=== PATIENT | male | born 1985 | race Caucasian/White ===

== ENCOUNTER 2020-08-28 09:50 | Outpatient (REF) | payer OTHER, SELFPAY ==
[2020-08-28 10:35] LABS: MANUAL DIFF FLAG NO
[2020-08-28 10:38] LABS: Basophils Absolute Auto 0.1 X10*3/uL (0.0-0.2); Eosinophils Absolute Auto 0.3 X10*3/uL (0.0-0.4); Eosinophils Percent Auto 3.5 % (0-4); Hematocrit 51.5 % (42-52); Hemoglobin 17.3 g/dl (14.0-18.0); Imm Gran Abs Auto 0.03 X10*3/uL (0.00-0.03); Imm Gran Pct Auto 0.4 % (0.0-0.4); Lymphocytes Absolute Auto 2.7 X10*3/uL (1.2-4.9); Lymphocytes Percent Auto 32.5 % (20-40); Mean Corpuscular HGB Conc 33.6 g/dl (31.0-36.0); Mean Corpuscular Volume 86.4 fL (80-98); Mean Platelet Volume 10.7 fL (9.4-12.4); Monocytes Absolute Auto 0.6 X10*3/uL (0.1-1.2); Monocytes Percent Auto 7.1 % (2-11); Neutrophils Absolute Auto 4.6 X10*3/uL (2.0-8.3); Neutrophils Percent Auto 55.5 % (45-73); Platelet Count 237 X10*3/uL (160-400); Red Blood Count 5.96 X10*6/uL (4.60-5.80); Red Cell Distribution Width 12.9 % (11.0-16.0); White Blood Count 8.3 X10*3/uL (4.8-10.8)
[2020-08-28 11:10] LABS: Alanine Aminotransferase 27 U/L (0-40); Albumin Level 4.3 g/dL (3.5-5.0); Alkaline Phosphatase 89 U/L (39-117); Anion Gap 12 (12-20); Aspartate Amino Transferase 17 U/L (5-37); Bilirubin Total 0.5 mg/dL (0.0-1.0); Blood Urea Nitrogen 15 mg/dL (9-16); Calcium 9.8 mg/dL (8.4-10.2); Carbon Dioxide 30 mmol/L (22-29); Chloride 99 mmol/L (96-108); Cholesterol 208 mg/dL; Estimated Glomerular Filt Rate > 60; Glucose Fasting 235 mg/dL (60-99); HDL Cholesterol 36 mg/dL; LDL Cholesterol Calculated 135 mg/dl; Sodium 136 mmol/L (135-145); Total Protein 7.7 g/dL (6.5-8.0); Triglycerides 187 mg/dL
[2020-08-28 11:12] LABS: Creatinine Urine 148.51 mg/dL; Microalbum/Creatinine Ratio Ur 4.7 ug/mg cr
[2020-08-28 11:17] LABS: Estimated Average Glucose 226 mg/dL; Hemoglobin A1c % 9.5 %
[2020-08-28 11:42] LABS: Vitamin B12 403 pg/mL (200-900)
[2020-09-01 20:37] LABS: Intrinsic Factor Antibodies Negative (Negative)
[2020-09-05 10:18] LABS: Parietal Cell Antibody 62.2 Unit (<=20.0)
== END 2020-08-28 09:51 | disposition home or self-care (01) ==
LOC: HO.LAB 09:50
PROVIDERS: PCP Internal Medicine; Visit Provider Internal Medicine
DX: E78.5 Hyperlipidemia, unspecified (principal); E78.2 Mixed hyperlipidemia; E11.65 Type 2 diabetes mellitus with hyperglycemia; E11.9 Type 2 diabetes mellitus without complications; E53.8 Deficiency of other specified B group vitamins
CPT/HCPCS: 36415; 80053; 80061; 82043; 82607; 82746; 83036; 83516; 85025; 86340

== ENCOUNTER 2020-12-05 20:29 | Emergency (ER) | payer OTHER, SELFPAY ==
[2020-12-05 22:21] VITALS: BP 133/83; PULSE 94; RESP 17; TEMP 36.5; O2SAT 96; BMI 38.5
--- NOTE | 2020-12-05 22:50 | ED_ITS ---
HPI - Skin/Abscess/Foreign Bdy General Chief complaint: Skin/Abscess/Foreign Body Stated complaint: abcess Time Seen by Provider: 12/05/20 23:53 Source: patient Mode of arrival: ambulatory Limitations: no limitations History of Present Illness HPI narrative: 35-year-old male presents with cellulitis and abscess to the left groin, and paronychia to the right middle finger. States is been there for several days and has been getting worse, he is having a difficult time ambulating at work because the pain and friction. He does not report any fevers or chills, states that these abscesses grow every once in a while and are usually in the same spot. MD complaint: abscess/boil Onset (ago): day(s) Tetanus up to date: no Location: R hand and LLE Severity: moderate Severity scale (1-10): 6 Quality: burning, aching and constant Pain Consistency: constant Relieving factors: none Exacerbating factors: palpation and movement Context: none Associated symptoms: denies other symptoms Treatments prior to arrival: attempted to drain pus at home Related Data Previous Rx's Medication Instructions Recorded blood sugar diagnostic #50 ea 10/19/20 blood-glucose meter #1 ea 10/19/20 lancets 28 gauge #100 ea 10/19/20 linagliptin 5 mg tablet 5 mg PO DAILY 90 Days #90 tab 10/19/20 pioglitazone 45 mg tablet 45 mg PO DAILY 90 Days #90 tab 10/19/20 rosuvastatin 10 mg tablet 10 mg PO BEDTIME 90 Days #90 tab 10/19/20 doxycycline monohydrate 100 mg PO BID 10 Days #20 tab 12/05/20 Allergies Allergy/AdvReac Type Severity Reaction Status Date / Time ibuprofen [IBUPROFEN] Allergy Severe FACIAL Verified 12/05/20 22:36 SWELLING TO THE EYES CLOSED , swells up metformin AdvReac Unknown diarrhea Verified 12/05/20 22:36 Review of Systems Review of Systems: Constitutional: No Fever, No Chills ENT/Mouth: No Ear Pain, No Hoarseness, No sore throat Eyes: No Eye Pain, No Swelling, No Redness, No Foreign Body Cardiovascular: No Chest Pain, No SOB Respiratory: No Cough, No Dyspnea Gastrointestinal: No Nausea, No Vomiting, No Diarrhea, No abdominal Pain Genitourinary: No Dysuria, No Hematuria Musculoskeletal: positive left groin and right finger pain, No Myalgias, No Joint Swelling Skin: Positive redness and swelling to the left groin, No Skin lacerations, No rash Neuro: No Weakness, No Numbness, No Paresthesias, No Loss of Consciousness, No Dizziness, No Headache Psych: No Anxiety/Panic, No Depression Heme/Lymph: no easy bruising, no Lymphadenopathy Endocrine: No Polyuria, No Polydipsia Yes all other systems are reviewed and are negative [facility] Past Medical History Attestation statement: The following information was validated with the patient. Source: old records reviewed Medical History (Updated 12/05/20 @ 23:56 by Eleni Camargo NP) B12 deficiency Diabetes mellitus Elevated hemoglobin Left elbow pain Lumbar degenerative disc disease Mixed hyperlipidemia MARILIA (obstructive sleep apnea) Surgical History History of removal of cyst Male circumcision Family History Family History Father No problems noted. Mother Hypertension Son No problems noted. Brother No problems noted. Brother No problems noted. Social History Social History Smoking Status: Current every day smoker Tobacco Type: Cigarette Cigarettes Per Day: 9 Advance Directives: No Advance Directives Information Provided: Yes Physical Exam Vital Signs: Vital Signs: Last Vital Signs Temp 97.7 F 12/05/20 22:21 Pulse 94 12/05/20 22:21 Resp 17 12/05/20 22:21 BP 133/83 12/05/20 22:21 Pulse Ox 96 12/05/20 22:21 Body Mass Index 38.5 Appearance: Alert. Oriented X3. No acute distress. Eyes: Pupils equal, round and reactive to light. ENT: Pharynx normal. Neck: Normal inspection. Neck supple. CVS: Normal heart rate and rhythm. Pulses normal. Respiratory: No respiratory distress. Breath sounds normal. Abdomen: Soft and nontender. Skin: Approximately 5 cm area of erythema and cellulitis with pustule to the left groin, paronychia to the right 3rd finger, Skin warm and dry. Normal skin color. Normal skin turgor. Extremities: No lower extremity edema. Full range of motion to all extremities, pulses and capillary refill equal Neuro: No motor deficit. No sensory deficit. Cranial nerves 2-12 intact no focal neural deficits Course Course Course Narrative: 35-year-old male presents with an abscess to his groin and paronychia. Plan of care is for I and D of both. Please refer to procedure note for full details. Prepped and draped in sterile fashion, patient tolerated procedure well. No complications noted. Paronychia drained a small incision to the lateral aspect of the nail, small amount of purulent drainage, patient tolerated procedure well. Both wounds dressed with sterile dressing. Patient verbalized understanding of and agrees plan of care discharge home. Procedures Abscess I/D Site: lower extremity Side (if applicable): left Local Anesthetic: lidocaine 2% Amount of anesthesia used (mL): 2 Technique: incised with blade Amount of fluid expressed (mL): 5 Sent for culture/gram staining?: No Irrigation: No Packing used?: none MDM - Skin/Abscess/Foreign Bdy MDM Narrative Medical decision making narrative: Paronychia Differential Diagnosis Differential diagnosis: Likely abscess of skin or subcutaneous tissue and cellul itis Medical Records Attestation: I reviewed the patient's medical records. Discharge Plan Discharge Clinical Impression: Paronychia Abscess of skin or subcutaneous tissue Qualifiers: Site of cutaneous abscess: other site Qualified Code(s): L02.818 - Cutaneous abscess of other sites Cellulitis Qualifiers: Site of cellulitis: other site Qualified Code(s): L03.818 - Cellulitis of other sites Patient Disposition: Home, Self-Care Instructions: Paronychia (ED), Abscess (ED), Abscess Follow-up (ED), Abscess Incision and Drainage (DC) Additional Instructions: You were evaluated for abscess to the left groin, these are recurrent so it could possibly be hidradenitis suppurativa. Please follow-up in 3 days for wound check. We did incise and drain this wound. Please take doxycycline as directed. We also drainage of paronychia, infection on the finger tip along the nail line. Thank you for choosing this emergency department for evaluation. Please follow-up with primary care physician as needed. Return to the emergency department for any new, concerning, or worsening symptoms. Prescriptions: New doxycycline monohydrate 100 mg tablet 100 mg PO BID 10 Days Qty: 20 RF: 0 No Action pioglitazone 45 mg tablet 45 mg PO DAILY 90 Days Qty: 90 RF: 1 Tradjenta 5 mg tablet 5 mg PO DAILY 90 Days Qty: 90 RF: 1 rosuvastatin 10 mg tablet 10 mg PO BEDTIME 90 Days Qty: 90 RF: 1 (DME) blood-glucose meter [FreeStyle [place] Lite] Kit See Rx Instructions .ROUTE .MEDSUPPLY Qty: 1 RF: 0 (DME) FreeStyle Test Strip See Rx Instructions .ROUTE .MEDSUPPLY Qty: 50 RF: 11 (DME) lancets [FreeStyle Lancets] 28 gauge misc See Rx Instructions .ROUTE .MEDSUPPLY Qty: 100 RF: 11 Stand Alone Forms: Work/School Release Interventions: ED Discharge Assessment Last Done: 12/06/20 00:10 Discharge Date/Time: 12/06/20 00:11
[2020-12-05] MEDS: Lidocaine HCl 2 % MPF 5 ML VIAL 10 ML SUBCUT (23:05)
[2020-12-05] MEDS: Diphth,Pertus(ACell),Tet Adult 0.5 ML SYRINGE IM (23:05)
== END 2020-12-06 00:11 | disposition home or self-care (01) ==
PROVIDERS: Emergency Provider Emergency Medicine Emergency Medical Services; PCP Internal Medicine
DX: L03.011 Cellulitis of right finger (principal); L02.214 Cutaneous abscess of groin; F17.210 Nicotine dependence, cigarettes, uncomplicated; Z71.6 Tobacco abuse counseling; Z79.899 Other long term (current) drug therapy
CPT/HCPCS: 10060; 90471; 90715; 96372; 99283; 99284

== ENCOUNTER 2021-10-09 09:08 | Outpatient (REF) | payer OTHER, SELFPAY ==
--- NOTE | ~2021-10-09 | XR_ITS ---
EXAMINATION: XR ELBOW, LEFT CLINICAL INFORMATION: Pain COMPARISON: None TECHNIQUE: AP, lateral, and oblique views of the left elbow. FINDINGS: Bone alignment is normal. No fracture or dislocation is seen. Joint spaces are normal. There is no joint effusion. There is a small olecranon osteophyte at the triceps tendon insertion. XR/XR elbow LT min 3V IMPRESSION: Small olecranon osteophyte at the triceps tendon insertion otherwise unremarkable exam.
== END 2021-10-09 09:09 | disposition home or self-care (01) ==
LOC: HO.XRAY 09:08
PROVIDERS: PCP Internal Medicine; Visit Provider Nurse Practitioner Family
DX: M25.522 Pain in left elbow (principal)
CPT/HCPCS: 73080

== ENCOUNTER 2021-11-15 14:30 | Outpatient (RCR) | payer OTHER, SELFPAY ==
--- NOTE | 2021-10-18 15:38 | MHC.OT.OEV ---
[address] [phone] F: [phone] Occupational Therapy Evaluation Diagnosis: PAIN IN LEFT ELBOW Date of Onset: 08/08/21 Attending Provider: Dia Jackson Prescribed Treatment: EVAL AND TREAT History of Current Condition: REPORTS TWO MONTH HISTORY OF LEFT ELBOW PAIN AND NUMBNESS RADIATING DOWN FOREARM AND HAND. XRAY IMPRESSION SMALL OLECRANON OSTEOPHYTE AT THE TRICEPS TENDON INSERTION. HAS EMG SCHEDULED 10/31/21. 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 MAY LIFT UP TO 45-50 POUNDS. 3 HOURS/ DAY. ALSO WORKS AT [employer] 4HRS/ 2X A WEEK (/). HOBBIES: PLAY STATION, PLAYING ON PHONE, WALKING DOGS Living Situation, Family and/or Social Support: LIVES WITH SPOUSE, 18 YEAR OLD SON, TWO DOGS Current Level of Function and Occupation Self Care, Employment, Leisure: DIFFICULTIES WITH LIFTING >8 POUNDS, GRIPPING, OPENING TIGHT JAR. NO TROUBLE WITH ADLs. Sleep: REPORTS NUMBNESS WORSE AT NIGHT, TROUBLE FALLING ASLEEP. TRYING VARIOUS SLEEPING POSITIONS. Driving: PAINFUL WITH DRIVING, UTILIZING RUE Pain Assessment Pain Score: 4-7/10 Pain Scale Used: Numeric (0 - 10) Pain Location and Description: 4-5/10 AT REST AT POSTERIOR ELBOW AND OLECRANON CREASE 6-7/10 WITH USE AND GRIPPING REPORTS PAIN IS SHARP Aggravating Factors: GRIPPING, CARRYING HEAVY ITEMS, SLEEPING Alleviating Factors: REPOSITIONING, USING PAIN SPRAY (IE BIOFREEZE), SOAKING IN BATH TUB, NOT TAKING PAIN MEDICATION, COMPRESSION SLEEVE Nerve assessment Ulnar Nerve: Left Impaired Median Nerve: Radial Nerve: Comments: (+) TINELS AT ELBOW, ULNA NERVE MMT L 4/5 REPORTS NUMBNESS AND TINGLING THROUGH D2-D4, DENIES AT D5 Sensory Assessment Temperature: Light Touch: B/L Impaired Proprioception: Vibration: Comments: PER SEMMES TAYLOR: DIMINISHED TO LIGHT TOUCH B/L'LY Edema Assessment Upper Extremity: WNL Lower Extremity: Comments: Dexterity Assessment Dexterity: WFL Comments: DENIES DIFFICULTIES WITH FINE MOTOR TASKS, MANIPULATING ITEMS FOR ADLs OR IADLs Special Tests Comments: (+) TINELS AT ELBOW, (-) AT WRIST AROM(PROM) Strength Elbow Flexion: Extension: Pronation: Supination: Comments: WFL Flexion: Extension: Pronation: Supination: Comments: Wrist Flexion: L 65, R 65 Extension: L 52, R 60 Ulnar Deviation: Radial Deviation: Comments: Flexion: Extension: Ulnar Deviation: Radial Deviation: Comments: Thumb Thumb CMC Flexion: Thumb MCP Flexion: Thumb IP Flexion: Radial Abduction: Palmar Abduction: Cross Anchor (Kapandji 0-10): L 10/10, R 10/10 Comments: Digits Index MCP: PIP: DIP: Long MCP: PIP: DIP: Ring MCP: PIP: DIP: Small MCP: PIP: DIP: Comments: Gross Grasp: L 42, R 98 Lateral Pinch: Two-Point Pinch: Three-Jaw Miky: Comments: Patient Education Primary Language: Danish Care Management Assistant Required: No Current Knowledge: Understands information with skills for self-management Teaching Method: Demonstration Handouts Verbal Education Needs Identified on Evaluation: ADL's Disease Information Equipment Use Exercise Pain Safety How did patient/family demonstrate learning? Patient demonstrates Patient verbalizes Barriers to Learning: None Readiness for Learning: Accepting Who was educated? Patient Comments: Plan of Care Assessment: MR ZHAO REPORTS TWO MONTHS OF LEFT ELBOW PAIN. NO KNOWN [place]. DENIES NEW HOBBIES OR CHANGE IN WORK ROUTINE. HE HAS PURCHASED A COMPRESSIVE ELBOW SLEEVE WITH SOME PAIN RELIEF, YET CONTINUES TO REPORT NUMBNESS AND TINGLING IN L HAND. HE STATES THE PARASTHESIA IS WORSE AT NIGHT AND IS HAVING TROUBLE SLEEPING. A 66% LIMITATION IS REPORTED PER THE QUICK DASH ASSESSMENT. ONGOING SKILLED OT IS WARRANTED FOR JT PROTECTION, ACTIVITY MODIFICATION, POSTURAL CORRECTIONS, STRENGTHENING, NEURO RE-ED AND PAIN RELIEF. STG Duration: 2 WEEKS Short Term Goals: IND HEP IND JT PROTECTION AND ACTIVITY MODIFICATION IND SLEEPING AND POSTURAL CHANGES REPORT <2/10 PAIN WITH AROM AND AT REST LTG Duration: 4 WEEKS Train Clerk Goals: REPORT MILD NUMBNESS AND TINGLING IN LUE REPORT MILD DIFFICULTIES WITH SLEEPING QUICK DASH <50% FRONT OFFICE SUPERVISOR STRENGTH >70 POUNDS REPORT <4/10 PAIN WITH LIFTING >20 POUNDS USING GOOD BODY MECHANICS AND JT PROTECTION STRATEGIES Frequency and Duration: The patient will be seen 2X/WEEK FOR 4 WEEKS Treatment Plan: Therapeutic Exercise Therapeutic Activity Home Exercise Program Splinting Neuro Re-ed Patient Education Desensitization/Sensory Re-ed Edema Control ADL Training Ultrasound NMES Iontophoresis Paraffin Fluidotherapy MHP Cold Packs Joint Mobilization Soft Tissue Mobilization Kinesiotaping Other (see comments) Electronically Signed By: SUSANNAH YOST OTR/L Reviewed/agree with student documentation: N/A Therapist: Please sign and return to therapist, Thank you for your referral.
--- NOTE | 2021-11-15 14:53 | MHC.OT.DC ---
[address] [phone] F: [phone] Occupational Therapy Discharge Note Provider: Dia Jackson Diagnosis: PAIN IN LEFT ELBOW Date of Evaluation: 10/18/21 Date of Discharge: 11/15/21 Treatments to Date: 3 Cancellations to Date: 3 No Shows to Date: 3 Discharge Status: Visit Non-compliance Discharge Summary: MR ZHAO PRESENTED TO OT FOR PAIN IN NON DOMINANT LUE. HE WAS EDUCATED ON JOINT PROTECTION, ACTIVITY MODIFICATION AND AVOIDING PROLONGED ELBOW FLEXION WHILE USING PHONE OR PLAYING VIDEO GAMES. Pt HAD REPORTED NUMBNESS AND TINGLING THROUGH SMALL AND RING FINGERS. Pt WILL BE D/C WITH RECOMMENDATIONS TO CONTINUE WITH HIS HEP. D/C IS DUE TO NON COMPLIANCE PER CORE ATTENDANCE POLICY. Electronically Signed By: PRETTY NICHOLS/Meri Reviewed/agree with student documentation: N/A Therapist: Please Sign and return to therapist, thank you for your referral.
== END 2021-11-15 14:50 | disposition home or self-care (01) ==
LOC: HO.OT 14:30
PROVIDERS: PCP Internal Medicine; Visit Provider Nurse Practitioner Family
DX: R20.0 Anesthesia of skin (principal); M25.522 Pain in left elbow
CPT/HCPCS: 97035; 97110; 97112; 97140; 97166

== ENCOUNTER → 2021-11-21 08:35 | Outpatient (BNVA) | payer OTHER, SELFPAY | PROVIDERS: PCP Internal Medicine; Visit Provider Physician Assistant | DX: M77.12 Lateral epicondylitis, left elbow (principal) | CPT/HCPCS: 82947; 99202 ==

== ENCOUNTER 2022-10-27 02:36 | Emergency (ER) | payer OTHER, SELFPAY ==
--- NOTE | ~2022-10-27 | XR_ITS ---
EXAMINATION: XR HAND, RIGHT CLINICAL INFORMATION: Pain COMPARISON: None TECHNIQUE: PA, lateral, and oblique views of the right hand. FINDINGS: No fracture or dislocation. Appropriate alignment. Joint spaces are maintained. The soft tissues are unremarkable. No radiopaque foreign body. XR/XR hand RT 2V IMPRESSION: Normal right hand.
[2022-10-27 02:47] VITALS: BP 139/83; PULSE 91; RESP 18; TEMP 36.6; O2SAT 96; BMI 39.5
--- NOTE | 2022-10-27 05:52 | ED_ITS ---
HPI - Extremity Problem General Chief complaint: Extremity Injury, Upper Stated complaint: Swollen finger, closed door on it Time Seen by Provider: 10/27/22 05:51 Source: patient Mode of arrival: ambulatory Limitations: no limitations History of Present Illness HPI Narrative: Patient slammed his right middle finger in a bathroom door yesterday comes here with small subungual hematoma with pain no deformity no other injury Related Data Previous Rx's Medication Instructions Recorded blood sugar diagnostic (FreeStyle #50 ea 10/19/20 Test strips) blood-glucose meter (FreeStyle #1 ea 10/19/20 [place] Lite kit) pioglitazone 15 mg tablet 15 mg PO DAILY 90 days #90 tabs 10/09/22 Allergies Allergy/AdvReac Type Severity Reaction Status Date / Time metformin AdvReac Unknown diarrhea Verified 10/27/22 02:50 Review of Systems Review of Systems: Yes all other systems are reviewed and are negative [facility] Past Medical History Medical History Abscess B12 deficiency Back pain Diabetes mellitus Elevated hemoglobin Left elbow pain Lumbar degenerative disc disease Mixed hyperlipidemia MARILIA (obstructive sleep apnea) Surgical History History of removal of cyst Male circumcision Family History Family History Father No problems noted. Mother Hypertension Son No problems noted. Brother No problems noted. Brother No problems noted. Social History Social History Housing: Apartment Patient Tobacco Use Status: Current everyday Tobacco user Tobacco use type: Cigarette Cigarettes Per Day: 10 e-Cigarette/Vaping Use: Never Used Second Hand Smoke Exposure: No Advance Directives: No service: No Current occupational status: employed Current occupation: [employer] Current occupational exposures/hazards: No Cognitive needs: No Hearing needs: No Vision needs: No Physical Exam Vital Signs: Vital Signs: Last Vital Signs Temp 97.9 F 10/27/22 02:47 Pulse 91 10/27/22 02:47 Resp 18 10/27/22 02:47 BP 139/83 10/27/22 02:47 Pulse Ox 96 10/27/22 02:47 O2 Del Method 10/27/22 02:47 BMI result Body Mass Index 39.5 Extrem: Hand/finger images: 1. Less than 1/3 right middle finger subungual hematoma slight tenderness no deformity neurovascular intact Medical Decision Making Medical Decision Making [facility] Narrative: X-ray negative for fracture patient has mild sublingual hematoma not much pain does not want to drill hole at this time discharge patient home advised to take ibuprofen Discharge Plan Discharge Clinical Impression: Subungual contusion of fingernail Patient Disposition: Home, Self-Care Instructions: Subungual Hematoma (ED) Additional Instructions: X-rays negative for fracture Ibuprofen for pain as needed Prescriptions: No Action (DME) blood-glucose meter [FreeStyle [place] Lite] Kit See Rx Instructions .ROUTE .MEDSUPPLY Qty: 1 0RF Rx Instructions: As directed (DME) FreeStyle Test Strip See Rx Instructions .ROUTE .MEDSUPPLY Qty: 50 11RF Rx Instructions: Use 1 test strip once a day pioglitazone 15 mg tablet 15 mg PO DAILY 90 Days Qty: 90 1RF
== END 2022-10-27 06:13 | disposition home or self-care (01) ==
PROVIDERS: Emergency Provider Internal Medicine; PCP Internal Medicine
DX: S60.031A Contusion of right middle finger without damage to nail, initial encounter (principal); F17.210 Nicotine dependence, cigarettes, uncomplicated; Y29.XXXA Contact with blunt object, undetermined intent, initial encounter; Y93.9 Activity, unspecified; Y92.9 Unspecified place or not applicable; Y99.9 Unspecified external cause status; Z79.899 Other long term (current) drug therapy; Z71.6 Tobacco abuse counseling
CPT/HCPCS: 73120; 99282; 99283

== ENCOUNTER 2024-04-26 09:38 | Outpatient (REF) | payer OTHER, SELFPAY ==
[2024-04-26 09:50] LABS: MANUAL DIFF FLAG NO
[2024-04-26 10:07] LABS: Basophils Absolute Auto 0.1 X10*3/uL (0.0-0.2); Basophils Percent Auto 0.9 % (0-2); Eosinophils Absolute Auto 0.3 X10*3/uL (0.0-0.4); Eosinophils Percent Auto 4.1 % (0-4); Hematocrit 50.9 % (42.0-52.0); Hemoglobin 17.2 g/dl (14.0-18.0); Imm Gran Abs Auto 0.04 X10*3/uL (0.00-0.03); Imm Gran Pct Auto 0.5 % (0.0-0.4); Lymphocytes Absolute Auto 3.1 X10*3/uL (1.2-4.9); Lymphocytes Percent Auto 39.8 % (20-40); Mean Corpuscular HGB Conc 33.8 g/dl (31.0-36.0); Mean Corpuscular Hemoglobin 28.9 pg (27.0-33.0); Mean Corpuscular Volume 85.4 fL (80.0-98.0); Mean Platelet Volume 10.4 fL (9.4-12.4); Monocytes Absolute Auto 0.5 X10*3/uL (0.1-1.2); Monocytes Percent Auto 6.5 % (2-11); Neutrophils Absolute Auto 3.8 x10*3/uL (2.0-8.3); Neutrophils Percent Auto 48.2 % (45-73); Platelet Count 239 X10*3/uL (160-400); Red Blood Count 5.96 X10*6/uL (4.60-5.80); Red Cell Distribution Width 13.3 % (11.0-16.0); White Blood Count 7.9 X10*3/uL (4.8-10.8)
[2024-04-26 10:46] LABS: Alanine Aminotransferase 32 U/L (0-40); Albumin Level 4.5 g/dL (3.5-5.0); Alkaline Phosphatase 91 U/L (39-117); Anion Gap 12 (12-20); Aspartate Amino Transferase 22 U/L (5-37); Bilirubin Total 0.5 mg/dL (0.0-1.0); Blood Urea Nitrogen 13 mg/dL (9-16); Calcium 10.2 mg/dL (8.4-10.2); Carbon Dioxide 31 mmol/L (22-29); Chloride 101 mmol/L (96-108); Cholesterol 220 mg/dL (<200); Estimated Glomerular Filt Rate > 60; Glucose Fasting 224 mg/dL (60-99); HDL Cholesterol 39 mg/dL (>40); Iron 66 mcg/dL (45-160); LDL Cholesterol Calculated 138 mg/dL (<100); Percent Iron Saturation 21 % (15-50); Potassium 4.1 mmol/L (3.3-5.1); Sodium 140 mmol/L (135-145); Total Iron Binding Capacity 314 mcg/dL (228-428); Total Protein 8.1 g/dL (6.5-8.0); Triglycerides 215 mg/dL (<150); Unsaturated Iron Binding 248 ug/dL
[2024-04-26 11:13] LABS: Folate 10.5 ng/mL (> or = 4.0); Vitamin B12 530 pg/mL (200-900)
[2024-04-30 14:13] LABS: Intrinsic Factor Antibodies Negative (Negative)
[2024-05-02 13:23] LABS: Parietal Cell Antibody 78.9 Unit (<=20.0)
== END 2024-04-26 09:39 | disposition home or self-care (01) ==
LOC: HO.LAB 09:38
PROVIDERS: PCP Internal Medicine; Visit Provider Internal Medicine
DX: E53.8 Deficiency of other specified B group vitamins (principal); D58.2 Other hemoglobinopathies; E11.65 Type 2 diabetes mellitus with hyperglycemia; E78.5 Hyperlipidemia, unspecified
CPT/HCPCS: 36415; 80053; 80061; 82607; 82746; 83516; 83540; 85025; 86340

== ENCOUNTER 2024-04-27 12:44 | Outpatient (AMB) | payer OTHER, SELFPAY ==
[2024-04-27 12:48] VITALS: BP 120/82; BMI 40.3
--- NOTE | 2024-04-27 12:48 | A.OFFPC_ITS ---
Vital Signs 04/27/24 12:48 Height 5 ft 8 in Weight 265 lb BMI 40.3 BP 120/82 Blood Pressure Location Lt brachial Position Sitting Intake Visit Reasons: follow up headaches Security System Administrator Required: No Accompanied by: Self / Same As Patient Allergies metformin Adverse Reaction (Unknown, Verified 04/27/24 13:04) diarrhea Medication List - Last Reconciled 04/27/24 by Arianna Delaney MD blood sugar diagnostic (FreeStyle Test strips) Use 1 test strip once a day blood-glucose meter (FreeStyle Peytona Lite kit) As directed pioglitazone 15 mg PO DAILY 90 days Tobacco use date assessed: 04/27/24 Dental Screening Dental Screen Date: 04/27/24 Did you have a dental visit in the last 12 months?: Yes Did you have a dental problem in the last 6 months where you did not have access to dental care?: No Was dental information given to patient?: Patient has dentist HPI HPI Comments History of Present Illness Details This is a 38-year-old male with diabetes mellitus type 2, mixed hyperlipidemia, mild major depression and morbid obesity that comes today com plaining of headaches that happens when he wakes up and started 2-3 weeks ago. The headaches involve the right side of the face and the eye. He also complains of daytime somnolence and severely dozed off as a passenger in a car for 1 hour without a break, while lying down to rest in the afternoon, while watching TV and sitting and reading with an [place] score Scale of 12 and I will order a sleep study for this matter. He is morbidly obese with a BMI of 40.3 and is willing to go to weight management. A1c not on goal and stop Actos over 3 months ago. I will restarted. LDL not on goal and I will start him on statins. Has mild major depression and has difficulty falling asleep and this is why I will start him on escitalopram at bedtime. Denies any chest pain or shortness on breath. He is a smoker and was willing to start nicotine patch to quit. PENDING SALE TO [facility] Medical History (Updated 04/27/24 @ 14:04 by Arianna Delaney MD) Back pain Abscess Left elbow pain Elevated hemoglobin Lumbar degenerative disc disease B12 deficiency MARILIA (obstructive sleep apnea) Mixed hyperlipidemia Diabetes mellitus Surgical History Male circumcision History of removal of cyst Family History Father No problems noted. Mother Hypertension Son No problems noted. Brother No problems noted. Brother No problems noted. Social History Housing: Apartment Patient Tobacco Use Status: Current everyday Tobacco user Tobacco use type: Cigarette Cigarette Packs Per Day: 1 e-Cigarette/Vaping Use: Never Used Second Hand Smoke Exposure: No service: No Current occupational status: employed Current occupation: [employer] Current occupational exposures/hazards: No Cognitive needs: No Hearing needs: No Vision needs: Yes Questionnaire PHQ-9 Over the last 2 weeks, how often have you been bothered by any of the following problems? 1. Little interest or pleasure in doing things: not at all 2. Feeling down, depressed, or hopeless: not at all 3. Trouble falling or staying asleep, or sleeping too much: nearly every day 4. Feeling tired or having little energy: several days 5. Poor appetite or overeating: not at all 6. Feeling bad about yourself - or that you are a failure or have let yourself or your family down: not at all 7. Trouble concentrating on things, such as reading the newspaper or watching television: not at all 8. Moving or speaking so slowly that other people could have noticed. Or the opposite - being so fidgety or restless that you have been moving around a lot more than usual: not at all 9. Thoughts that you would be better off or of hurting yourself in some way: not at all Total score: 4 Depression Screening Interpretation: Positive Depression Screening Follow-up: Existing condition, New Medication prescribed and Follow-up Visit Requested Depression Screening Done: Yes 56862 - PHQ-9 Billing: Yes Source: Developed by Drs. Jose Dejesus, Klarissa Corea, Santhosh Quach and colleagues, with an educational michael from [employer]. Thrive Questionnaire Date Thrive assessed: 04/27/24 I am a: Patient What is your living situation today?: I have a steady place to live Within the past 12 months, did the food you bought not last and you didn't have the money to get more?: Never true Within the past 12 months, did you worry whether your food would run out before you got money to buy more?: Never true Do you have trouble paying for medicines?: No Do you have trouble getting transportation to medical appointments?: No Do you have trouble paying your heating and electricity bill?: No Do you have trouble taking care of your child, family member or friend?: No Do you have trouble with day-to-day activities such as bathing, preparing meals, shopping, managing finances, etc.?: No Are you currently unemployed and looking for a job?: No Are you interested in more education?: No Please select the resources that you would like help with: None Currently or been in a relationship where the following occur: No concerns reported THRIVE Score: 0 AUDIT C Alcohol Use Questionnaire (AUDIT-C) 1. How often do you have a drink containing alcohol?: Never Total Score: 0 Score Reviewed/Action Taken: No PHIL-7 AMB Questionnaire PHIL-7 Date PHIL - 7 assessed: 04/27/24 Feeling nervous, anxious, or on edge: 0 = Not at all Not being able to stop or control worryin = Not at all Worrying too much about different things: 0 = Not at all Trouble relaxin = Not at all Being so restless that it is hard to sit still: 0 = Not at all Becoming easily annoyed or irritable: 0 = Not at all Feeling afraid as if something awful might happen: 0 = Not at all Total PHIL-7 score (0-4 normal; 5-9 mild; 10-14 moderate; 15-21 severe): 0 Source: Developed by Drs. Jose Dejesus, Klarissa Corea, Santhosh Quach and colleagues, with an educational michael from [employer]. PHIL-7 Assessment Billing PHIL-7 Assessment Tool: PHIL-7 Assessment 35952 Review of Systems Const All systems reviewed & are unremarkable except as noted in HPI and below Card Denies chest pain at rest, Denies chest pain with activity, Denies edema, Denies irregular heart rhythm, Denies claudication, Denies dyspnea, Denies dyspnea on exertion, Denies orthopnea, Denies paroxysmal nocturnal dyspnea and Denies slow heart rate Resp Denies cough, Denies dyspnea and Denies dyspnea on exertion GI Denies abdominal pain, Denies change in bowel habits, Denies excessive flatus, Denies nausea and Denies vomiting Denies urinary hesitancy, Denies urinary incontinence and Denies urinary urgency Physical exam (Primary Care) Vital Signs: Last Vital Signs BP 120/82 04/27/24 12:48 BMI result Body Mass Index 40.3 BMI Assessment/Plan discussion: High BMI High, discussed plan: lifestyle, weight reduction, dietary and physical activity Tobacco/Smoking Status: Tobacco use Status Tobacco use date assessed 04/27/24 04/27/24 12:53 Patient Tobacco Use Status Current everyday Tobacco 04/27/24 12:53 Tobacco use type Cigarette 04/27/24 12:53 e-Cigarette/Vaping Use Never Used 04/27/24 12:53 Are you ready to quit: Yes Tobacco cessation counseling provided: Yes Items discussed: Nicotine replacement and QuitWorks Relapse Prevention: discussed the importance of a supportive environment, discussed extending NRT, discussed negative mood or depression after quitting, weight gain after smoking is common and discussed dietary, exercise and/or lifestyle changes Number of minutes spent counselin CPT code: 88899 - 4-10 Minutes PHQ-9: PHQ-9 Score PHQ-9: Total score 4 04/27/24 13:11 Depression Screening Interpretation: Positive Depression Screening Follow-up: Existing condition, New Medication prescribed and Follow-up Visit Requested Thrive Assessment: Date of Thrive Assessment Date Thrive assessed 04/27/24 04/27/24 12:53 Currently or been in a relationship where the following occur: No concerns reported Resp Effort & Inspection: normal respiratory effort Auscultation: clear to auscultation bilaterally Cardio Jugular venous distension: no JVD Rate: regular rate Rhythm: regular rhythm Heart sounds: S1 normal heart sound present and S2 normal heart sound present Extrem General: Yes full ROM Results AMB Hemoglobin A1c AMB Hemoglobin A1c 9.4 % Last Edit by AMBER Rodrigues on 04/27/24 13:0 2 Results Reviewed Results Reviewed: Laboratory Last Values Hgb A1c (Clinic) 9.4 % (4.0-6.0) H 04/27/24 13:01 Assessment and Plan Assessment & Plan (1) Diabetes mellitus: Code(s): E11.9 - Type 2 diabetes mellitus without complications Qualifiers: Diabetes mellitus type: type 2 Diabetes mellitus retirement insulin use: without middle or intermediate school principal use Diabetes mellitus complication status: with hyperglycemia Qualified Code(s): E11.65 - Type 2 diabetes mellitus with hyperglycemia Plan: Restart Actos. A1c goal is equal or less than 7%. (2) Mixed hyperlipidemia: Code(s): E78.2 - Mixed hyperlipidemia Plan: Start statins. LDL goal is less than 70. Advise low-cholesterol diet. (3) Mild major depression: Code(s): F32.0 - Major depressive disorder, single episode, mild Plan: Start escitalopram at bedtime. (4) Morbid obesity with BMI of 40.0-44.9, adult: Code(s): E66.01 - Morbid (severe) obesity due to excess calories; Z68.41 - Body mass index [BMI] 40.0-44.9, adult Plan: Referred to weight management. BMI goal is less than 30. (5) Daytime somnolence: Code(s): R40.0 - Somnolence Plan: Sleep study ordered. Orders: Orders RT home sleep study Today R40.0 - Somnolence Microalbumin, Random (w Creat) 5 Months E11.9 - Type 2 diabetes mellitus without complications Comprehensive [place]. Panel Fast 5 Months E11.65 - Type 2 diabetes mellitus with hyperglycemia AMB Hemoglobin A1c Today E11.65 - Type 2 diabetes mellitus with hyperglycemia Lipid Panel 5 Months E78.5 - Hyperlipidemia, unspecified Referrals Medical Weight Management Referral E66.01 - Morbid (severe) obesity due to excess calories, Z68.41 - Body mass index [BMI] 40.0-44.9, adult Medications: New atorvastatin 20 mg PO BEDTIME 90 tabs 1RF 90 days E78.2 - Mixed hyperlipidemia escitalopram oxalate 5 mg PO BEDTIME 30 tabs 2RF 30 days F32.0 - Major depressive disorder, single episode, mild nicotine 1 patch transdermal DAILY 28 ea 0RF 28 days sumatriptan succinate do not exceed 8 doses per 24 hrs 25 mg PO Q2-4H PRN 9 tabs 3RF migraine headache 30 days Refilled pioglitazone 15 mg PO DAILY 90 tabs 1RF 90 days E11.65 - Type 2 diabetes mellitus with hyperglycemia Coding Level of Care Code Est Pt Level 4 (71977) Complex EM visit Add On G2211 Diagnoses Type 2 diabetes mellitus with hyperglycemia, without long-term current use of insulin E11.65 Diabetes mellitus type: type 2 Diabetes mellitus retirement insulin use: without retirement use Diabetes mellitus complication status: with hyperglycemia Mixed hyperlipidemia E78.2 Mild major depression F32.0 Morbid obesity with BMI of 40.0-44.9, adult E66.01; Z68.41 Daytime somnolence R40.0 Additional Codes PHIL-7 Assessment Billing - PHIL-7 Assessment Tool: PHIL-7 Assessment 24240 ([id number]) Vital Signs *Quality* - CPT code: 97688 - 4-10 Minutes ([id number]) Time Spent (min) 25
== END 2024-04-27 13:24 | disposition home or self-care (01) ==
PROVIDERS: PCP Internal Medicine; Visit Provider Internal Medicine
DX: E11.65 Type 2 diabetes mellitus with hyperglycemia (principal); F32.0 Major depressive disorder, single episode, mild; E66.01 Morbid (severe) obesity due to excess calories; Z68.41 Body mass index [BMI] 40.0-44.9, adult; R40.0 Somnolence; E78.2 Mixed hyperlipidemia
CPT/HCPCS: 83036; 96127; 99214; G2211

== ENCOUNTER 2024-12-24 09:40 | Outpatient (REF) | payer OTHER, SELFPAY ==
[2024-12-24 09:57] LABS: MANUAL DIFF FLAG NO
--- OUTSIDE RECORDS SUMMARY | 2024-12-24 10:19 | XMS_ITS | Clinical Summary ---
Author Organization [employer] Address [address] [place] [address] 7 [place] [address] Care Team Providers Care Visually Impaired Teacher Name Role Phone Unavailable Primary Care Provider Unavailabl e Allergies No known active allergies Medications pioglitazone (Actos) 15 MG tablet Take 15 mg by mouth in the morning. 10/09/2022 Active Social History Tobacco Use Types Packs/Day Years Used Date Smoking Tobacco: Every Day Cigarettes Smokeless Tobacco: Never Tobacco Cessation:Ready to Q uit: Not Asked; Counseling Given: Not Answered Sex and Gender Information Value Date Recorded Sex Assigned at Male 07/08/2022 10:20 AM EDT Legal Sex Male 10:20 AM EDT Gender Identity Male 07/08/2022 10:20 AM EDT Sexual Orientation Straight 07/08/2022 10 :20 AM EDT Last Filed Vital Signs Vital Sign Reading Time Taken Comments Blood Pressure 118/77 01/06/2023 3:07 PM EDT Pulse 77 01/06/2023 3:07 PM EDT Temperature - - Respiratory Rate - - Oxygen Saturation - - Inhaled Oxygen Concentration - - Weight - - Height - - Body Mass Index - - Plan of Treatment Upcoming Encounters Date Type Department Care Team (Late st Contact Info) Description 02/14/2025 10:00 AM EDT Office Visit [facility] [address] [place] [address] Ashley Mccray [address] [place] [address] Health Maintenance Due Date Last Done Comments Dental X-Ray: Full Mouth 1983 Depression Screening 1983 HIV Screening 1983 Lipid Panel 1983 SDOH Screening 1983 Alcohol/Substance Use Screening 1995 Family Planning (PISQ) 1998 Hepatitis C Screening 2001 Hepatitis B Vaccines (1 of 3 - 19+ 3-dose series) 2002 Pneumococcal Vaccine: Pediatrics (0 to 5 Years) and At-Risk Patients (6 to 49) Years) (1 of 2 - PCV) 2002 Dental Oral Exam 07/10/2023 01/06/2023 Dental Prophylaxis 07/10/2023 01/06/2023 Tobacco Screening 01/07/2024 01/06/2023 Dental X-Ray: Bitewings 01/08/2024 01/06/2023 COVID-19 Vaccine (3 - season) 2024 01/26/2021, 12/29/2020 Influenza Vaccine (#1) 2024 2, 08/12/2019, 06/05/2018, Additional history exists DTaP/Tdap/Td Vaccines (2 - Td or Tdap) 12/05/2030 12/05/2020, 09/21/2014 Zoster Vaccines (1 of 2) 2033 RSV Patients and Patients Aged 60 years or older (1 - 1-dose 75+ series) 2058 HIB Vaccines Aged Out No longer eligi ble based on patient's age to complete this topic HPV Vaccines Aged Out No longer eligi ble based on patient's age to complete this topic Hepatitis A Vaccines Aged Out No long er eligible based on patient's age to complete this topic IPV Vaccines Aged Out No longer eligi ble based on patient's age to complete this topic Meningococcal Vaccine Aged Out No leisa shayla eligible based on patient's age to complete this topic RSV under 20 months Aged Out No longe r eligible based on patient's age to complete this topic Rotavirus Vaccines Aged Out No longer eligible based on patient's age to complete this topic Procedures Procedure Name Priority Date/Time Associated Diagnosis Comments PROPHYLAXIS - ADULT Routine 01/06/2023 3 :00 PM EDT Encounter for dental examination BITEWINGS - 4 RADIOGRAPHIC IMAGES Routine 01/06/2023 3:00 PM EDT Encounter for dental examination PERIODIC ORAL EVALUATION - ESTABLISHED PATIENT Routine 01/06/2023 3:00 PM EDT from Last 3 Months or Most Recently Relevant to Health Maintenance Insurance D[facility]AL-[facility] MEDICAID STAND ADULT
--- OUTSIDE RECORDS SUMMARY | 2024-12-24 10:19 | XMS_ITS | Encounter Summary ---
Author Organization [employer] Address [address] [place] [address] 7 [place] [address] Care Team Providers Care Drill Operator Pneumatic Name Role Phone Unavailable Primary Care Provider Unavailabl e Reason for Visit * Reason Onset Date Comments rs appt 07/14/2024 Encounter Details Date Type Department Care Team (Late st Contact Info) Description 07/14/2024 Telephone [facility] [address] [place] [address] Ashley Mccray [address] [place] [address] rs appt Social History Tobacco Use Types Packs/Day Years Used Date Smoking Tobacco: Every Day Cigarettes Smokeless Tobacco: Never Sex and Gender Information Value Date Recorded Sex Assigned at Male 07/08/2022 10:20 AM EDT Legal Sex Male 10:20 AM EDT Gender Identity Male 07/08/2022 10:20 AM EDT Sexual Orientation Straight 07/08/2022 10 :20 AM EDT documented as of this encounter Miscellaneous Notes * Telephone Encounter - Anita Castillo - 07/14/2024 8:15 AM EST Patient had appt at 11am and his son at 10am. [place] is not feeling well and unable to make the appt and son cannot come because he does not have a ride. They are looking for 10 and 11am spots. 11amspot not avaialble to [facility]. Please reach out to patient for rescheduling documented in this encounter Plan of Treatment Upcoming Encounters Date Type Department Care Team (Late st Contact Info) Description 02/14/2025 10:00 AM EDT Office Visit [facility] [address] [place] [id number] Ashley Mccray [address] [place] [phone] documented as of this encounter Visit Diagnoses Not on filedocumented in this encounter
--- OUTSIDE RECORDS SUMMARY | 2024-12-24 10:19 | XMS_ITS | Encounter Summary ---
Author Organization [employer] [facility] Address [address] [place] [address] [address] [place] [address] Care Team Providers Care Tailer Out Name Role Phone Unavailable Primary Care Provider Unavailabl e Encounter Details Date Type Department Care Team (Latest Contact Info) Description 01/18/[address] [facility] CONVERSIONS Dental, Provider, DDS Social History Tobacco Use Types Packs/Day Years Used Date Smoking Tobacco: Never Assessed Sex and Gender Information Value Date Recorded Sex Assigned at Male 07/08/2022 10:20 AM EDT Legal Sex Male 10:20 AM EDT Gender Identity Male 07/08/2022 10:20 AM EDT Sexual Orientation Straight 07/08/2022 10 :20 AM EDT documented as of this encounter Plan of Treatment Upcoming Encounters Date Type Department Care Team (Late st Contact Info) Description 02/14/2025 10:00 AM EDT Office Visit [facility] [address] [place], [place] [phone] Ashley Mccray [address] [place], [place] [phone] documented as of this encounter Visit Diagnoses Not on filedocumented in this encounter
--- OUTSIDE RECORDS SUMMARY | 2024-12-24 10:19 | XMS_ITS | Encounter Summary ---
Author Organization [employer] [facility] Address [address] [place] [address] [address] [place] [address] Care Team Providers Care Video Specialist Name Role Phone Unavailable Primary Care Provider Unavailabl e Encounter Details Date Type Department Care Team (Latest Contact Info) Description 05/31/2019 Abstract [facility] CONVERSIONS Dental, Provider, DDS Social History Tobacco [...] Description 02/14/2025 10:00 AM EDT Office Visit [facility] [address] [place], [place] [phone] Ashley Mccray [address] [place], [place] [phone] documented as of this encounter Visit Diagnoses Not on filedocumented in this encounter
[2024-12-24 10:56] LABS: Basophils Absolute Auto 0.1 X10*3/uL (0.0-0.2); Eosinophils Absolute Auto 0.3 X10*3/uL (0.0-0.4); Eosinophils Percent Auto 3.9 % (0-4); Hematocrit 50.3 % (42.0-52.0); Hemoglobin 16.9 g/dl (14.0-18.0); Imm Gran Abs Auto 0.03 X10*3/uL (0.00-0.03); Imm Gran Pct Auto 0.4 % (0.0-0.4); Lymphocytes Absolute Auto 3.3 X10*3/uL (1.2-4.9); Mean Corpuscular HGB Conc 33.6 g/dl (31.0-36.0); Mean Corpuscular Volume 86.4 fL (80.0-98.0); Mean Platelet Volume 10.2 fL (9.4-12.4); Monocytes Absolute Auto 0.7 X10*3/uL (0.1-1.2); Monocytes Percent Auto 8.5 % (2-11); Neutrophils Absolute Auto 3.6 x10*3/uL (2.0-8.3); Neutrophils Percent Auto 45.2 % (45-73); Platelet Count 207 X10*3/uL (160-400); Red Blood Count 5.82 X10*6/uL (4.60-5.80); Red Cell Distribution Width 13.2 % (11.0-16.0)
[2024-12-24 11:36] LABS: Creatinine Urine 115.98 mg/dL
[2024-12-24 11:37] LABS: Alanine Aminotransferase 43 U/L (0-40); Albumin Level 4.1 g/dL (3.5-5.0); Anion Gap 11 (12-20); Aspartate Amino Transferase 26 U/L (5-37); Bilirubin Total 0.6 mg/dL (0.0-1.0); Blood Urea Nitrogen 16 mg/dL (9-16); Carbon Dioxide 29 mmol/L (22-29); Chloride 103 mmol/L (96-108); Cholesterol 165 mg/dL (<200); Estimated Glomerular Filt Rate > 60; Glucose Fasting 220 mg/dL (60-99); HDL Cholesterol 34 mg/dL (>40); LDL Cholesterol Calculated 99 mg/dL (<100); Potassium 4.3 mmol/L (3.3-5.1); Sodium 139 mmol/L (135-145); Total Protein 7.2 g/dL (6.5-8.0); Triglycerides 162 mg/dL (<150)
[2024-12-24 11:59] LABS: Folate 11.4 ng/mL (> or = 4.0); Vitamin B12 451 pg/mL (200-900)
[2024-12-24 19:47] LABS: Alkaline Phosphatase 75 U/L (39-117)
== END 2024-12-24 09:41 | disposition home or self-care (01) ==
LOC: HO.LAB 09:40
PROVIDERS: PCP Internal Medicine; Visit Provider Internal Medicine
DX: E78.5 Hyperlipidemia, unspecified (principal); E11.65 Type 2 diabetes mellitus with hyperglycemia; D64.9 Anemia, unspecified; E53.8 Deficiency of other specified B group vitamins
CPT/HCPCS: 36415; 80053; 80061; 82043; 82570; 82607; 82746; 85025

== ENCOUNTER 2025-02-01 10:56 | Outpatient (AMB) | payer OTHER, SELFPAY ==
[2025-02-01 11:02] VITALS: BP 130/82; BMI 40.7
--- NOTE | 2025-02-01 11:02 | A.OFFPC_ITS ---
Vital Signs 02/01/25 11:02 Height 5 ft 8 in Weight 268 lb BMI 40.7 BP 130/82 Blood Pressure Location Lt brachial Position Sitting Intake Visit Reasons: annual exam Intake Note: Patient here for an annual physical exam Molding Process Technician Required: No Accompanied by: Self / Same As Patient Allergies metformin Adverse Reaction (Unknown, Verified 02/01/25 11:13) diarrhea Medication List - Last Reconciled 02/01/25 by Arianna Delaney MD atorvastatin 20 mg PO BEDTIME 90 days blood sugar diagnostic (FreeStyle Test strips) Use 1 test strip once a day blood-glucose meter (FreeStyle [place] Lite kit) As directed escitalopram oxalate 5 mg PO BEDTIME 30 days pioglitazone 15 mg PO DAILY 90 days sumatriptan succinate 25 mg PO Q2-4H PRN 30 days Tobacco use date assessed: 02/01/25 Dental Screening Dental Screen Date: 02/01/25 Did you have a dental visit in the last 12 months?: Yes Did you have a dental problem in the last 6 months where you did not have access to dental care?: No Was dental information given to patient?: Patient has dentist HPI HPI Comments History of Present Illness Details The patient is a 39-year-old male presenting for his physical exam. His recent laboratory results indicated a Hemoglobin A1c of 10.2, suggesting inadequate control of his blood glucose levels. Current treatment is in place with pioglitazone 15 mg, yet the patient's diabetes remains poorly managed. There is a discussion of possibly incorporating new treatment modalities to better manage the condition. He is morbidly obese and was advised to do diet and exercise to reach BMI goal less than 30. Additionally, Hyperlipidemia is a concern with atorvastatin 20 mg being used to manage cholesterol. Although there has been some improvement in cholesterol levels, LDL targets have not yet been achieved. The patient also experiences Depression, Anxiety, and Insomnia and is currently receiving treatment with escitalopram 5 mg. Treatment for Migraines with sumatriptan 25 mg is reported, used episodically for management. - Vaccinations are up to date. - Regular monitoring of lipid profile du e to Hyperlipidemia. - Monitoring Hemoglobin A1c levels to imani seymour Type 2 Diabetes Mellitus. - Screening for depression and anxiety m anagement compliance. - Encouragement of lifestyle modificatio ns to aid in the management of chronic conditions, including smoking cessation. [facility] Medical History Back pain Abscess Left elbow pain Elevated hemoglobin Lumbar degenerative disc disease B12 deficiency MARILIA (obstructive sleep apnea) Mixed hyperlipidemia Diabetes mellitus Surgical History Male circumcision History of removal of cyst Family History Father No problems noted. Mother Hypertension Son No problems noted. Brother No problems noted. Brother No problems noted. Social History (Updated 02/01/25 @ 11:19 by Arianna Delaney MD) Housing: Apartment Alcohol intake: never Patient Tobacco Use Status: Current everyday Tobacco user Tobacco use type: Cigarette Cigarettes Per Day: 6 e-Cigarette/Vaping Use: Never Used Second Hand Smoke Exposure: No service: No Current occupational status: employed Current occupation: [employer] Current occupational exposures/hazards: No Cognitive needs: No Hearing needs: No Vision needs: Yes Questionnaire PHQ-9 Over the last 2 weeks, how often have you been bothered by any of the following problems? 1. Little interest or pleasure in doing things: not at all 2. Feeling down, depressed, or hopeless: not at all 3. Trouble falling or staying asleep, or sleeping too much: not at all 4. Feeling tired or having little energy: not at all 5. Poor appetite or overeating: not at all 6. Feeling bad about yourself - or that you are a failure or have let yourself or your family down: not at all 7. Trouble concentrating on things, such as reading the newspaper or watching television: not at all 8. Moving or speaking so slowly that other people could have noticed. Or the opposite - being so fidgety or restless that you have been moving around a lot more than usual: not at all 9. Thoughts that you would be better off or of hurting yourself in some way: not at all Total score: 0 Depression Screening Interpretation: Negative Depression Screening Done: Yes 27247 - PHQ-9 Billing: Yes Source: Developed by Drs. Jose Dejesus, Klarissa Corea, Santhosh Quach and colleagues, with an educational michael from [employer]. Thrive Questionnaire Date Thrive assessed: 02/01/25 I am a: Patient What is your living situation today?: I have a steady place to live Within the past 12 months, did the food you bought not last and you didn't have the money to get more?: Never true Within the past 12 months, did you worry whether your food would run out before you got money to buy more?: Never true Do you have trouble paying for medicines?: No Do you have trouble getting transportation to medical appointments?: No Do you have trouble paying your heating and electricity bill?: No Do you have trouble taking care of your child, family member or friend?: No Do you have trouble with day-to-day activities such as bathing, preparing meals, shopping, managing finances, etc.?: No Are you currently unemployed and looking for a job?: No Are you interested in more education?: No Please select the resources that you would like help with: None Currently or been in a relationship where the following occur: No concerns reported THRIVE Score: 0 AUDIT C Alcohol Use Questionnaire (AUDIT-C) 1. How often do you have a drink containing alcohol?: Never Total Score: 0 Score Reviewed/Action Taken: No PHIL-7 AMB Questionnaire PHIL-7 Date PHIL - 7 assessed: 02/01/25 Feeling nervous, anxious, or on edge: 0 = Not at all Not being able to stop or control worryin = Not at all Worrying too much about different things: 0 = Not at all Trouble relaxin = Not at all Being so restless that it is hard to sit still: 0 = Not at all Becoming easily annoyed or irritable: 0 = Not at all Feeling afraid as if something awful might happen: 0 = Not at all Total PHIL-7 score (0-4 normal; 5-9 mild; 10-14 moderate; 15-21 severe): 0 Source: Developed by Drs. Jose Dejesus, Klarissa Corea, Santhosh Quahc and colleagues, with an educational michael from [employer]. PHIL-7 Assessment Billing PHIL-7 Assessment Tool: PHIL-7 Assessment 75652 Review of Systems Const All systems reviewed & are unremarkable except as noted in HPI and below Card Denies chest pain at rest, Denies chest pain with activity, Denies edema, Denies irregular heart rhythm, Denies claudication, Denies dyspnea, Denies dyspnea on exertion, Denies orthopnea, Denies paroxysmal nocturnal dyspnea and Denies slow heart rate Resp Denies cough, Denies dyspnea and Denies dyspnea on exertion GI Denies abdominal pain, Denies change in bowel habits, Denies excessive flatus, Denies nausea and Denies vomiting Neuro Denies behavioral changes and Denies lack of coordination Psych Denies behavioral changes Physical exam (Primary Care) Vital Signs: Last Vital Signs BP 130/82 02/01/25 11:02 BMI result Body Mass Index 40.7 Tobacco/Smoking Status: Tobacco use Status Tobacco use date assessed 02/01/25 02/01/25 11:07 Patient Tobacco Use Status Current everyday Tobacco 02/01/25 11:12 Tobacco use type Cigarette 02/01/25 11:12 e-Cigarette/Vaping Use Never Used 02/01/25 11:12 PHQ-9: PHQ-9 Score PHQ-9: Total score 0 02/01/25 11:14 Depression Screening Interpretation: Negative Thrive Assessment: Date of Thrive Assessment Date Thrive assessed 02/01/25 02/01/25 11:07 Currently or been in a relationship where the following occur: No concerns reported [facility] Head: Yes normal to inspection, Yes normocephalic and Yes atraumatic Ears: external ears normal Eyes General: appearance normal, both eyes and all related structures Eyelids: Yes eyelids normal Conjunctivae: conjunctivae normal Neck Neck: Yes normal visual inspection and Yes supple Resp Effort & Inspection: normal respiratory effort Auscultation: clear to auscultation bilaterally Cardio Jugular venous distension: no JVD Rate: regular rate Rhythm: regular rhythm Heart sounds: S1 normal heart sound present and S2 normal heart sound present GI Inspection: Yes normal to inspection Palpation (GI): Soft to palpation and nontender Auscultation: normal bowel sounds Skin General skin exam: no rashes or lesions noted Neuro General: no focal motor deficits Extrem General: Yes full ROM Psych Appearance: grossly normal Results AMB Hemoglobin A1c AMB Hemoglobin A1c 10.2 % Last Edit by AMBER Rodrigues on 02/01/25 11: 17 Coding Level of Care Code Est Pt Level 3 (06249) Est Pt Prev Care 40-64y(36458) Diagnoses Physical exam Z00.00 Mild major depression F32.0 Morbid obesity with BMI of 40.0-44.9, adult E66.01; Z68.41 Type 2 diabetes mellitus with hyperglycemia, without long-term current use of insulin E11.65 Diabetes mellitus complication status: with hyperglycemia Diabetes mellitus care home insulin use: without care home use Diabetes mellitus type: type 2 Additional Codes PHQ-9 - 32382 - PHQ-9 Billing: Yes ([id number]) PHIL-7 Assessment Billing - PHIL-7 Assessment Tool: PHIL-7 Assessment 42570 ([id number]) Time Spent (min) 34 Assessment & Plan Assessment & Plan (1) Physical exam: Code(s): Z00.00 - Encounter for general adult medical examination without abnormal findings Category: Medical (2) Mild major depression: Code(s): F32.0 - Major depressive disorder, single episode, mild Category: Medical (3) Morbid obesity with BMI of 40.0-44.9, adult: Code(s): E66.01 - Morbid (severe) obesity due to excess calories; Z68.41 - Body mass index [BMI] 40.0-44.9, adult Category: Medical (4) Diabetes mellitus: Code(s): E11.9 - Type 2 diabetes mellitus without complications Category: Medical Qualifiers: Diabetes mellitus complication status: with hyperglycemia Diabetes mellitus intermediate frame tender insulin use: without intermediate frame tender use Diabetes mellitus type: type 2 Qualified Code(s): E11.65 - Type 2 diabetes mellitus with hyperglycemia Plan For continued management of Hyperlipidemia, atorvastatin 20 mg is to be taken daily, with regular lipid monitoring. Depression, Anxiety, and Insomnia are to be managed with escitalopram 5 mg, while Migraine episodes will be handled with sumatriptan 25 mg as needed. Social and lifestyle interventions were addressed, notably the advisement for smoking cessation.: Patient was informed and verbally consented to the use of an ambient scribe for clinic note documentation during this visit. I extensively discussed the current management of the patient's poorly controlled Type 2 Diabetes Mellitus, highlighting the critical role of both pharmacological and lifestyle interventions. In light of his elevated Hemoglobin A1c reading at 10.2 percent, we considered the continuation of pioglitazone 15 mg while exploring adjunct treatment options. The benefits of smoking cessation were underscored as a preventive measure against further cardiovascular risk. Potential changes to his medication regimen will involve evaluating the necessity for additional oral hypoglycemic agents. Long-term effectiveness and tolerability were pivotal in our treatment discussions. Orders: Orders Microalbumin, Random (w Creat) 4 Months R80.9 - Proteinuria, unspecified AMB Hemoglobin A1c Today E11.65 - Type 2 diabetes mellitus with hyperglycemia T Spot TB Today Z11.1 - Encounter for screening for respiratory tuberculosis Lipid Panel 4 Months E78.5 - Hyperlipidemia, unspecified Comprehensive [place]. Panel Fast 4 Months E11.65 - Type 2 diabetes mellitus with hyperglycemia Referrals Ophthalmology Referral E11.65 - Type 2 diabetes mellitus with hyperglycemia Medications: New pioglitazone 30 mg PO DAILY 90 days 90 tabs 1RF dulaglutide (Trulicity) 0.75 mg (0.5 mL) subcut QWEEK 4 weeks 2 mL 4RF E11.65 - Type 2 diabetes mellitus with hyperglycemia Refilled atorvastatin 20 mg PO BEDTIME 90 days 90 tabs 1RF E78.2 - Mixed hyperlipidemia sumatriptan succinate do not exceed 8 doses per 24 hrs 25 mg PO Q2-4H 30 days PRN 9 tabs 3RF migraine headache Discontinued pioglitazone Discontinued Reason: Patient Completed Course 15 mg PO DAILY 90 days 90 tabs 1RF E11.65 - Type 2 diabetes mellitus with hyperglycemia Patient Instructions: - Take pioglitazone 30 mg daily as directed. - Continue atorvastatin 20 mg for Hyperlipidemia management. - Continue escitalopram 5 mg daily for anxiety, depression, and insomnia. - Use sumatriptan 25 mg as needed for migraine relief. - Make an effort to quit smoking. Seek support if needed. - Schedule follow-up blood tests as advised. - Monitor blood glucose levels regularly.
--- OUTSIDE RECORDS SUMMARY | 2025-02-01 11:47 | XMS_ITS | Encounter Summary ---
Author Organization [employer] Address [address] [place] [address] [address] [place] [address] Care Team Providers Care Briar Shop Supervisor Name Role Phone Unavailable Primary Care Provider Unavailabl e Reason for Visit * Reason Onset Date Comments rs appt 07/14/2024 Encounter Details Date Type Department Care Team (Late st Contact Info) Description 07/14/2024 Telephone [facility] [address] [place], [place] [phone] Ashley Mccray [address] [place] [address] rs appt Social History Tobacco Use Types [...] and 11am spots. 11amspot not avaialble to [facility]. Please reach out to patient for rescheduling documented in this encounter Plan of Treatment Not on file documented as of this encounter Visit Diagnoses Not on filedocumented in this encounter
== END 2025-02-01 11:26 | disposition home or self-care (01) ==
LOC: HO.HMCH 10:57
PROVIDERS: PCP Internal Medicine; Visit Provider Internal Medicine
DX: Z00.00 Encounter for general adult medical examination without abnormal findings (principal); F32.0 Major depressive disorder, single episode, mild; E66.01 Morbid (severe) obesity due to excess calories; Z68.41 Body mass index [BMI] 40.0-44.9, adult; E11.65 Type 2 diabetes mellitus with hyperglycemia

== ENCOUNTER → 2025-02-01 10:56 | Outpatient (BNVA) | payer OTHER, SELFPAY ==
--- OUTSIDE RECORDS SUMMARY | 2025-02-02 10:28 | XMS_ITS | Encounter Summary ---
Author Organization [employer] Address [address] [place] [address] [address] [place] [address] Care Team Providers Care Assistant Professor Of English Name Role Phone Unavailable Primary Care Provider Unavailabl e Reason for Visit * Reason Onset Date Comments rs appt 07/14/2024 Encounter Details Date Type Department Care Team (Late st Contact Info) Description 07/14/2024 Telephone [facility] [address] [place], [place] [phone] Ashley Mccray [address] [place] [address] rs appt Social History Tobacco Use Types [...] and 11am spots. 11amspot not avaialble to [facility]. Please reach out to patient for rescheduling documented in this encounter Plan of Treatment Not on file documented as of this encounter Visit Diagnoses Not on filedocumented in this encounter
== END ==
LOC: CF 02-02 09:45
PROVIDERS: PCP Internal Medicine; Visit Provider Internal Medicine
DX: Z00.00 Encounter for general adult medical examination without abnormal findings (principal); E11.9 Type 2 diabetes mellitus without complications; F32.0 Major depressive disorder, single episode, mild; E66.01 Morbid (severe) obesity due to excess calories; E11.65 Type 2 diabetes mellitus with hyperglycemia; R80.9 Proteinuria, unspecified; E78.2 Mixed hyperlipidemia; Z68.41 Body mass index [BMI] 40.0-44.9, adult; Z79.899 Other long term (current) drug therapy
CPT/HCPCS: 83036; 96127; 99212; 99396

== ENCOUNTER 2025-02-03 09:28 | Outpatient (REF) | payer OTHER, SELFPAY ==
--- OUTSIDE RECORDS SUMMARY | 2025-02-03 09:48 | XMS_ITS | Encounter Summary ---
Author Organization [employer] Address [address] [place] [address] [address] [place] [address] Care Team Providers Care Audiometric Technician Name Role Phone Unavailable Primary Care Provider Unavailabl e Reason for Visit * Reason Onset Date Comments rs appt 07/14/2024 Encounter Details Date Type Department Care Team (Late st Contact Info) Description 07/14/2024 Telephone [facility] [address] [place], [place] [phone] Ashley Mccray [address] [place] [address] rs appt Social History Tobacco Use Types [...] and 11am spots. 11amspot not avaialble to [facility] [place]. Please reach out to patient for rescheduling documented in this encounter Plan of Treatment Not on file documented as of this encounter Visit Diagnoses Not on filedocumented in this encounter
[2025-02-03 10:41] LABS: Alanine Aminotransferase 41 U/L (0-40); Albumin Level 4.5 g/dL (3.5-5.0); Alkaline Phosphatase 74 U/L (39-117); Anion Gap 12 (12-20); Aspartate Amino Transferase 25 U/L (5-37); Bilirubin Total 0.7 mg/dL (0.0-1.0); Blood Urea Nitrogen 15 mg/dL (9-16); Carbon Dioxide 30 mmol/L (22-29); Chloride 105 mmol/L (96-108); Cholesterol 182 mg/dL (<200); Estimated Glomerular Filt Rate > 60; Glucose Fasting 203 mg/dL (60-99); HDL Cholesterol 33 mg/dL (>40); LDL Cholesterol Calculated 116 mg/dL (<100); Sodium 143 mmol/L (135-145); Total Protein 7.5 g/dL (6.5-8.0); Triglycerides 168 mg/dL (<150)
[2025-02-03 11:42] LABS: Creatinine Urine 216.69 mg/dL
[2025-02-06 18:58] LABS: TS Negative Control Passed; TS Panel A 0; TS Panel B 0; TS Positive Control Passed; TSpotTB Negative (Negative)
== END 2025-02-03 09:29 | disposition home or self-care (01) ==
LOC: HO.LAB 09:28
PROVIDERS: PCP Internal Medicine; Visit Provider Internal Medicine
DX: E78.5 Hyperlipidemia, unspecified (principal); R80.9 Proteinuria, unspecified; E11.65 Type 2 diabetes mellitus with hyperglycemia; Z11.1 Encounter for screening for respiratory tuberculosis
CPT/HCPCS: 36415; 80053; 80061; 82043; 82570; 86481